=== PATIENT | female | born 1985 | race American Indian/Alaskan Native ===

== ENCOUNTER 2017-07-16 12:34 | Emergency (ER) | payer MEDICAID ==
[2017-07-16 13:23] VITALS: BP 142/91
[2017-07-16] MEDS ORDERED: NACL 0.9% 1000 ML 1,000 ML IV ONE (15:46)
--- NOTE | 2017-07-16 15:46 | Emergency Department Report ---
Blank Doc - Documentation Documentation: Patient is a 31-year-old Cecy female who is 14 weeks who has some dizziness when she stands for the past several days. Patient states that she has had significant morning sickness this . Patient also states that for the past 2 days she's had some right lower quadrant tenderness to feels like a pulling sensation. The patient patient denies any vaginal discharge vaginal bleeding or dysuria at this time. Patient reviewed with the treatment room to get IV fluids and have orthostatics do. Ne
[2017-07-16] MEDS ORDERED: TYLENOL PO ONE (16:30)
--- NOTE | 2017-07-16 16:35 | Emergency Department Report ---
ED HPI - General Chief complaint: Urogenital-Female Stated complaint: 4MTHS PREG W/DIZZINESS/ABD PAIN Time Seen by Provider: 07/16/17 15:34 Source: patient Mode of arrival: Ambulatory Limitations: No Limitations - History of Present Illness Initial comments: This is a 31-year-old female nontoxic, well nourished in appearance, no acute signs of distress presents to the ED with c/o of dizziness and right pelvic/groin pain x3 days. Patient states dizziness is aggravated with positions from sitting to standing. Patient stated that pelvic pain is described as pulling sensation. Patient stated she is currently 14 weeks . Patient denies any vaginal bleeding, vaginal discharge, urinary symptoms, fever, chills, nausea, vomiting, headache, stiff neck, back pain, chest pain, shortness of breath, difficulty breathing. Patient stated had similar symptoms 2 months ago on the left side and was seen in my smoking tobacco packer hand clinic with normal ultrasound. Patient stated last OB appointment was last week and normal. Patient denies any allergies or PMH. MD Complaint: abdominal pain (right pelvic), other (dizziness) -: days(s) (3) Location: pelvis (right) Radiation: none Severity: mild Severity scale (0 -10): 3 Quality: other (pulling sensation) Consistency: intermittent Improves with: none Worsens with: none Associated symptoms: denies other symptoms. denies: nausea/vomiting, vaginal bleeding, vaginal discharge, abdominal pain, dysuria, headache, vision changes, malaise, dysparuenia, rash, seizure, shortness of breath, syncope, weakness Vaginal bleeding: none :: Yes Number of weeks : 14 OB History - Current : no complications OB History - Previous Pregnancies: no complications Pre- care: followed by OB - Related Data : 2 Para: 1 Previous Rx's Medication Instructions Recorded Last Taken Type Acetaminophen 500 mg PO Q8H PRN #20 tablet 07/16/17 Unknown Rx Allergies Allergy/AdvReac Type Severity Reaction Status Date / Time No Known Allergies Allergy Unverified 07/16/17 13:23 ED Review of Systems ROS: Stated complaint: 4MTHS PREG W/DIZZINESS/ABD PAIN Other details as noted in HPI Constitutional: denies: chills, fever Eyes: denies: eye pain, eye discharge, vision change ENT: denies: ear pain, throat pain Respiratory: denies: cough, shortness of breath, wheezing Cardiovascular: denies: chest pain, palpitations Endocrine: no symptoms reported Gastrointestinal: denies: abdominal pain, nausea, diarrhea Genitourinary: denies: urgency, dysuria, discharge Musculoskeletal: denies: back pain, joint swelling, arthralgia Skin: denies: rash, lesions Neurological: other (dizzy). denies: headache, weakness, paresthesias Psychiatric: denies: anxiety, depression Hematological/Lymphatic: denies: easy bleeding, easy bruising ED Past Medical Hx - Past Medical History Previous Medical History?: No - Social History Smoking Status: Never Smoker Substance Use Type: None - Medications Home Medications: Home Medications Medication Instructions Recorded Confirmed Last Taken Type Acetaminophen 500 mg PO Q8H PRN #20 tablet 07/16/17 Unknown Rx ED Physical Exam - General Limitations: No Limitations General appearance: alert, in no apparent distress - Head Head exam: Present: atraumatic, normocephalic - Eye Eye exam: Present: normal appearance Pupils: Present: normal accommodation - ENT ENT exam: Present: normal exam, normal orophraynx, mucous membranes moist, TM's normal bilaterally, normal external ear exam - Neck Neck exam: Present: normal inspection, full ROM. Absent: tenderness, meningismus, lymphadenopathy, thyromegaly - Respiratory Respiratory exam: Present: normal lung sounds bilaterally. Absent: respiratory distress, wheezes, rales, rhonchi, stridor, chest wall tenderness, accessory muscle use, decreased breath sounds, prolonged expiratory - Cardiovascular Cardiovascular Exam: Present: regular rate, normal rhythm, normal heart sounds. Absent: irregular rhythm, systolic murmur, diastolic murmur, rubs, gallop - GI/Abdominal GI/Abdominal exam: Present: soft, normal bowel sounds. Absent: distended, tenderness, guarding, rebound, rigid, diminished bowel sounds - Rectal Rectal exam: Present: deferred - Extremities Exam Extremities exam: Present: normal inspection, full ROM, normal capillary refill. Absent: tenderness, pedal edema, joint swelling, calf tenderness - Back Exam Back exam: Present: normal inspection, full ROM - Neurological Exam Neurological exam: Present: alert, oriented X3, normal gait - Psychiatric Psychiatric exam: Present: normal affect, normal mood - Skin Skin exam: Present: warm, dry, intact, normal color. Absent: rash ED Course Vital Signs 07/16/17 13:19 Temperature 98.6 F Pulse Rate 104 H Respiratory 18 Rate Blood Pressure 142/91 O2 Sat by Pulse 100 Oximetry - Reevaluation(s) Reevaluation #1: 07/16/17 16:36 Patient is speaking in full sentences with no signs of distress noted. - Consultations Consultation #1: 07/16/17 16:36 Patient has been consulted with Dr. Barry about patient history, physical exam , and labs and examined and screened patient and agrees to ED plan of care and discharge plan of care. ED Medical Decision Making - Medical Decision Making This is a 31-year-old female that presents with pelvic pain and dizziness. Patient is stable and was examined by me and Dr. Barry. Orthostatic vital signs within normal limits. Patient received 1 L of normal saline and Tylenol. Patient stated that symptoms of pelvic pain has resolved and subsided. Dr. Barry stated no need for ultrasound to be obtained as patient had a normal ultrasound 2 months ago. Dizziness has subsided after 1L of Normal saline. Patient was referred to Follow-up with a MAINTENANCE TECHNICIAN [facility] in 3-5 days or if symptoms worsen and continue return to emergency room as soon as possible. At time of discharge, the patient does not seem toxic or ill in appearance. No acute signs of distress noted. Patient agrees to discharge treatment plan of care. No further questions noted by the patient. Critical care attestation.: If time is entered above; I have spent that time in minutes in the direct care of this critically ill patient, excluding procedure time. ED Disposition Clinical Impression: Pelvic pain, Dizziness Qualifiers: Weeks of gestation: 15 weeks Qualified Code(s): Z3A.15 - 15 weeks gestation of Disposition: DC-01 TO HOME OR SELFCARE Is pt being admited?: No Does the pt Need Aspirin: No Condition: Stable Instructions: (ED) Additional Instructions: Follow-up with a MAINTENANCE TECHNICIAN 2[facility] SH[facility] in 3-5 days or if symptoms worsen and continue return to emergency room as soon as possible. Prescriptions: Acetaminophen 500 mg PO Q8H PRN #20 tablet PRN Reason: Pain Referrals: [facility] [Other] - 3-5 Days KATINA CARLSON MD [Staff Physician] - 3-5 Days [facility] [Provider Group] - 3-5 Days [facility] [Outside] - 3-5 Days [facility] [Outside] - 3-5 Days Forms: Work/School Release Form(ED)
[2017-07-16 17:01] LABS: Bacteria,Urine 2+ /HPF (Negative); Bilirubin,Urine NEG (Negative); Blood,Urine NEG (Negative); Color,Urine Straw (Yellow); Protein,Urine <15 mg/dL mg/dL (Negative); Urobilinogen,Urine < 2.0 mg/dL (<2.0)
== END 2017-07-16 17:40 | disposition home or self-care (01) ==
LOC: ED 12:34
DX: O26.892 Other specified pregnancy related conditions, second trimester (principal); R10.2 Pelvic and perineal pain; R42 Dizziness and giddiness; Z3A.14 14 weeks gestation of pregnancy
CPT/HCPCS: 81001; 96360; 99283; J7030

== ENCOUNTER 2017-10-06 12:27 | Outpatient (CLI) | payer BC, MEDICAID ==
[2017-10-06] MEDS ORDERED: LACTATED RINGERS 500 ML IV ONE (12:30)
[2017-10-06 12:54] VITALS: BP 126/67
[2017-10-06 14:18] LABS: Basophils % (Auto) 0.1 % (0.0-1.8); Eosinophils % (Auto) 0.3 % (0.0-4.3); Hematocrit 32.5 % (30.3-42.9); Hemoglobin 11.2 gm/dl (10.1-14.3); Lymphocytes # (Auto) 1.5 K/mm3 (1.2-5.4); Mean Corpuscular HGB Conc 34 % (30-34); Mean Corpuscular Hemoglobin 30 pg (28-32); Mean Corpuscular Volume 87 fl (79-97); Monocytes # (Auto) 0.9 K/mm3 (0.0-0.8); Platelet Count 179 K/mm3 (140-440); Red Blood Count 3.74 M/mm3 (3.65-5.03); Red Cell Distribution Width 13.3 % (13.2-15.2)
[2017-10-06 14:34] LABS: Bacteria,Urine 4+ /HPF (Negative); Bilirubin,Urine NEG (Negative); Blood,Urine NEG (Negative); Color,Urine Yellow (Yellow); Protein,Urine <15 mg/dL mg/dL (Negative); Urobilinogen,Urine < 2.0 mg/dL (<2.0)
--- NOTE | 2017-10-06 15:40 | Ultrasound Report ---
FINAL REPORT PROCEDURE: US OB BPP WO NON-STRESS TECHNIQUE: Sonographic evaluation for breathing, movement, tone, and amniotic fluid volume was performed. CPT 90461 HISTORY: BPP, JACOBO, EFW COMPARISON: No prior studies are available for comparison. FINDINGS: Amniotic fluid volume: Normal-score 2. At least one vertical pocket > 2 cm or more in vertical axis. breathing: Normal-score 2. movement: Normal-score 2. tone: Normal-score 2.. Score: 8 of 8. heart rate measures 151 beats per minute. IMPRESSION: Normal biophysical profile score.
--- NOTE | 2017-10-06 15:46 | Ultrasound Report ---
FINAL REPORT PROCEDURE: US OB FOLLOW UP TECHNIQUE: Real-time limited sonographic examination was performed for evaluation of size, position, heartbeat, fluid volume for each fetus with image documentation (1 or more fetuses). CPT 75832 HISTORY: BPP, JACOBO, EFW COMPARISON: No prior studies are available for comparison. FINDINGS: Maternal cervix is not diagnostically visualized or evaluated. FETUS IUP: Single living intrauterine . Position: Cephalic. Placental position: Not evaluated Amniotic fluid volume: Amniotic fluid index measures 11.7 centimeters Heart rate and rhythm: 145 BPM, Regular . anatomic survey: Not performed. MEASUREMENTS BPD: 6.4 centimeters, 25 weeks 5 days. HC: 23.4 centimeters, 25 weeks 3 days. AC: 21.8 centimeters, 26 weeks 2 days. FL: 4.6 centimeters, 25 weeks 1 day. Mean Gestational Age (composite criteria): 25 weeks 5 days. Ratio biometry: Normal . Estimated Weight: 851 grams, 41 percentile by LMP. Estimated Due Date:01/14/2018. IMPRESSION: 1. Single living intrauterine gestation at approximately 25 weeks 5 days. 2. EDC by US 01/14/2018.
== END 2017-10-06 15:35 | disposition home or self-care (01) ==
LOC: TRG 12:27
PROVIDERS: ATTEND Obstetrics & Gynecology
DX: O47.02 False labor before 37 completed weeks of gestation, second trimester (principal); Z3A.25 25 weeks gestation of pregnancy
CPT/HCPCS: 36415; 59025; 76816; 76819; 81001; 85025; 96360; J7120

== ENCOUNTER 2017-12-05 12:16 | Outpatient (CLI) | payer BC, MEDICAID ==
[2017-12-05 12:57] LABS: Bacteria,Urine 3+ /HPF (Negative); Bilirubin,Urine NEG (Negative); Blood,Urine NEG (Negative); Color,Urine Yellow (Yellow); Protein,Urine <15 mg/dL mg/dL (Negative); RBC,Urine < 1.0 /HPF (0.0-6.0); Urobilinogen,Urine < 2.0 mg/dL (<2.0)
[2017-12-05] MEDS ORDERED: TYLENOL PO ONE (13:49)
[2017-12-05 14:19] LABS: Basophils % (Auto) 0.3 % (0.0-1.8); Eosinophils # (Auto) 0.1 K/mm3 (0.0-0.4); Eosinophils % (Auto) 0.7 % (0.0-4.3); Hematocrit 31.9 % (30.3-42.9); Hemoglobin 10.6 gm/dl (10.1-14.3); Lymphocytes # (Auto) 1.5 K/mm3 (1.2-5.4); Lymphocytes % (Auto) 19.6 % (13.4-35.0); Mean Corpuscular HGB Conc 33 % (30-34); Mean Corpuscular Hemoglobin 28 pg (28-32); Mean Corpuscular Volume 84 fl (79-97); Monocytes # (Auto) 0.6 K/mm3 (0.0-0.8); Monocytes % (Auto) 8.2 % (0.0-7.3); Platelet Count 171 K/mm3 (140-440); Red Cell Distribution Width 14.8 % (13.2-15.2)
[2017-12-05] MEDS ORDERED: LACTATED RINGERS 500 ML IV ONE (14:22)
[2017-12-05 14:53] VITALS: BP 131/76
[2017-12-05 15:20] LABS: Albumin 3.3 g/dL (3.9-5); BUN/Creatinine Ratio 5; Blood Urea Nitrogen 2 mg/dL (7-17); Calcium 9.5 mg/dL (8.4-10.2); Hemolysis Index 205
[2017-12-05 15:24] LABS: Alanine Aminotransferase 11 units/L (7-56)
--- NOTE | 2017-12-05 16:49 | Ultrasound Report ---
COMPLETE OB ULTRASOUND: Maternal swelling. Gestation: Weber Position: Cephalic JACOBO = 21.2 cm Placenta: Left lateral Placental Grade: 2 Heart Rate: 138 BPM BPD: 8.7 cm = 35 w 1 d HC: 31.4 cm = 35 w 2 d AC: 32.4 cm = 36 w 2 d FL: 6.9 cm = 31 w 1 d HC/AC Ratio: 0.97 Cephalic Index: 85.9 Estimated Weight: 2772 grams Clinical age = 34 w 2 d EDC: 01/14/18 US Gest. Age = 35 w 3 d EDC: 01/06/18 Comment: 4.7 cm anterior uterine fibroid. BIOPHYSICAL PROFILE: 2 - breathing movements 2 - movements 2 - posture and tone 2 - Qualitative amniotic fluid volume 8 - TOTAL SCORE OF POSSIBLE 8 Heart Rate (bpm) 138
== END 2017-12-05 15:16 | disposition home or self-care (01) ==
LOC: TRG 12:16
PROVIDERS: ATTEND Obstetrics & Gynecology
DX: O47.03 False labor before 37 completed weeks of gestation, third trimester (principal); Z3A.34 34 weeks gestation of pregnancy
CPT/HCPCS: 36415; 59025; 76816; 76819; 80053; 81001; 85025; 86850; 86900; 86901; 96360; 96361; J7120

== ENCOUNTER 2018-01-07 05:49 | Inpatient (IN) | payer BC, MEDICAID ==
[~2018-01-07 05:49] MED LIST: BICITRA PO NR; PEPCID IV NR; REGLAN IV NR
[2018-01-07] MEDS ORDERED: PITOCin/NS 20 UNIT/1000ML DRIP 20 UNITS/1,000 ML BAG IV SCH ×2 (06:00→11:29)
[2018-01-07] MEDS ORDERED: ANCEF/STERILE WATER 2 GM/20 ML 2 GM/20 ML SYRINGE IV NR (06:00)
[2018-01-07 06:32] LABS: Basophils % (Auto) 0.4 % (0.0-1.8); Eosinophils % (Auto) 0.5 % (0.0-4.3); Hematocrit 32.3 % (30.3-42.9); Hemoglobin 10.5 gm/dl (10.1-14.3); Lymphocytes # (Auto) 2.3 K/mm3 (1.2-5.4); Lymphocytes % (Auto) 27.2 % (13.4-35.0); Mean Corpuscular HGB Conc 32 % (30-34); Mean Corpuscular Hemoglobin 26 pg (28-32); Mean Corpuscular Volume 81 fl (79-97); Monocytes # (Auto) 0.8 K/mm3 (0.0-0.8); Monocytes % (Auto) 9.7 % (0.0-7.3); Platelet Count 152 K/mm3 (140-440); Red Blood Count 3.97 M/mm3 (3.65-5.03); Red Cell Distribution Width 15.5 % (13.2-15.2)
[2018-01-07] MEDS: LACTATED RINGERS 1,000 ML IV SCH ×2 (06:45→11:17)
--- NOTE | 2018-01-07 07:15 | Anesthesia Consultation ---
Anesthesia Consult and Med Hx Date of service: 01/07/18 - Airway Anesthetic Teeth Evaluation: Good ROM Head & Neck: Adequate Mental/Hyoid Distance: Adequate Mallampati Class: Class II Intubation Access Assessment: Probably Good - Pre-Operative Health Status ASA Pre-Surgery Classification: ASA2 Proposed Anesthetic Plan: Epidural, Spinal - Pulmonary Hx Asthma: Yes (mild, albuterol PRN) Hx Respiratory Symptoms: Yes (has resolving cold - scratchy throat, dry cough) COPD: No Hx Pneumonia: No - Cardiovascular System Hx Hypertension: No - Central Nervous System Hx Seizures: No Hx Psychiatric Problems: No - Endocrine Hx Renal Disease: No Hx End Stage Renal Disease: No Hx Hypothyroidism: No Hx Hyperthyroidism: No - Hematic Hx Anemia: No Hx Sickle Cell Disease: No - Other Systems Hx Alcohol Use: No
--- NOTE | 2018-01-07 07:16 | Anesthesia Day of Surgery ---
Anesthesia Day of Surgery - Day of Surgery Patient Examined: Yes Patient H&P Reviewed: Yes Patient is NPO: Yes
[2018-01-07] MEDS ORDERED: ZOFRAN IV PRN ×2 (07:30→11:29)
[2018-01-07] MEDS ORDERED: DILAUDID IV PRN (07:30)
[2018-01-07] MEDS ORDERED: PHENERGAN PR PRN (07:30)
[2018-01-07] MEDS ORDERED: BENADRYL IV PRN (07:30)
[2018-01-07] MEDS ORDERED: PHENERGAN PO PRN (07:30)
[2018-01-07] MEDS ORDERED: NARCAN 0.4 MG/1 ML IV PRN ×2 (07:30→11:29)
--- NOTE | 2018-01-07 07:37 | History and Physical Report ---
History of Present Illness Date of examination: 01/07/18 Date of admission: 01/07/18 05:49 History of present illness: Patient admitted for repeat section. Patient informed the risks of the surgery include bleeding possibly bleeding heavy enough to require blood transfusion, infection possible damage to bowel bladder ureter. Patient understands that due to her previous surgery she is an increased risks of adjacent organ damage. Patient's questions answered. Patient understands and desires to proceed. Menstrual History Regularity: regular Menses every: 24 days Duration: 7 LMP reliability: definite LMP character: heavier test type: urine test Date: 05/24/2017 BC at conception: none Planned ? no EDC Calculations LMP: 01/14/2018 EDC Confirmation: 01/14/2018 Past History : 5 Term Births: 1 Premature Births: 0 Living Children: 1 Para: 1 Mult. Births: 0 Prev : 1 Prev. attempt? 0 Aborta: 2 Elect. Ab: 1 Spont. Ab: 1 Ectopics: 1 # 1 Delivery date: 2004 Delivery type: ectopic Comments: tx'd w/ MTX, left side # 2 Delivery date: 04/15/2009 Weeks Gestation: FT labor: no Delivery type: Delivery location: [facility] Sex: Male weight: 7-9 Comments: breech # 3 Delivery date: 2009 Weeks Gestation: 4-5 Delivery type: EAB Comments: denies complications # 4 Delivery date: 2013 Delivery type: SAB Comments: MAB - no complications Past Medical History: Negative Past Medical History Past Surgical History: Past Medical History Social Hx: Patient is Smoking History: Patient has never smoked. Infection History Hx of STD: HSV HIV Risk Eval: low risk Hepatitis B Risk Eval: low risk Personal hx. of genital herpes: yes Partner hx. of genital herpes: no Rash, Viral, or Febrile illness since last LMP? no Varicella/Chicken Pox Status: Unknown TB Risk: no Genetic History Congenital Heart Defect: Mom: no Dad: no Sona Disease: Mom: no Dad: no Thalassemia Mom: no Dad: no Neural Tube Defect Mom: no Dad: no Down's Syndrome Mom: no Dad: no Cole-Sachs Mom: no Dad: no Sickle Cell Disease/Trait Mom: no Dad: no Hemophilia Mom: no Dad: no Muscular Dystrophy Mom: no Dad: no Cystic Fibrosis Mom: no Dad: no [place] Chorea Mom: no Dad: no Mental Retardation Mom: no Dad: no Fragile X Mom: no Dad: no Other Genetic/Chromosomal Disorder Mom: no Dad: no Child w/other defect Mom: no Dad: no Enviromental Exposures Xray Exposure: no Medication, drug, or alcohol use since LMP: no Chemical/Other Exposure: no Exposure to Cat Liter: no Hx of Parvovirus (Fifth Disease): no Occupational Exposure to Children: none Current Allergies (reviewed today): No known allergies Past History Past Medical History: asthma, other (See HPI) Past Surgical History: section, other (See HPI) DUPLICATING MACHINE OPERATOR History: other (See HPI) Family/Genetic History: other (See HPI) Social history: other (See HPI) - Obstetrical History Expected Date of Delivery: 01/14/18 Actual Gestation: 39 Week(s) 0 Day(s) : 5 Para: 1 Hx # Term Pregnancies: 1 Number of Pregnancies: 0 Spontaneous Abortions: 2 (1 Ectopic) Induced : 1 Number of Living Children: 1 Medications and Allergies Allergies Allergy/AdvReac Type Severity Reaction Status Date / Time No Known Allergies Allergy Verified 12/05/17 12:30 Home Medications Medication Instructions Recorded Confirmed Last Taken Type Acetaminophen 500 mg PO Q8H PRN 10/06/17 10/06/17 10/06/17 09:30 History Pnv No.95/Ferrous Fum/Folic AC 1 tab PO QDAY 10/06/17 10/06/17 10/05/17 20:00 History [ Formula Tablet] Ferrous Sulfate [Feosol 325 MG tab] 325 mg PO BID #60 tablet 01/07/18 Unknown Rx Ibuprofen [Motrin 800 MG tab] 800 mg PO Q6H PRN #30 tablet 01/07/18 Unknown Rx oxyCODONE /ACETAMINOPHEN [Percocet 1 - 2 tab PO Q4H PRN #30 tablet 01/07/18 Unknown Rx 5/325 mg] Active Meds: Active Medications Citric Acid/Sodium Citrate (Bicitra) 30 ml PO ONCE NR Stop: 01/07/18 23:45 Diphenhydramine HCl (Benadryl) 12.5 mg IV Q2H PRN PRN Reason: Itching Famotidine (Pepcid) 20 mg IV ONCE NR Stop: 01/07/18 23:45 Hydromorphone HCl (Dilaudid) 0.5 mg IV Q5M PRN PRN Reason: Breakthrough Pain Stop: 01/07/18 15:00 Cefazolin Sodium (Ancef/Sterile Water 2 Gm/20 Ml) 2 gm in 20 mls @ 80 mls/hr IV PREOP NR; Protocol Stop: 01/07/18 23:45 Lactated Ringer's (Lactated Ringers) 1,000 mls @ 2,250 mls/hr IV PREOP MCKAY Stop: 01/08/18 06:27 Last Admin: 01/07/18 06:45 Dose: 2,250 mls/hr Oxytocin/Sodium Chloride (Pitocin/Ns 20 Unit/1000ml Drip) 20 units in 1,000 mls @ 0 mls/hr IV TITR MCKAY Metoclopramide HCl (Reglan) 10 mg IV ONCE NR Stop: 01/07/18 23:45 Naloxone HCl (Narcan 0.4 Mg/1 Ml) 0.2 mg IV Q2MIN PRN PRN Reason: Res Rate </= 8 or 02 SAT < 92% Ondansetron HCl (Zofran) 4 mg IV Q8H PRN PRN Reason: Nausea And Vomiting Promethazine HCl (Phenergan) 25 mg PO Q6H PRN PRN Reason: Nausea And Vomiting Promethazine HCl (Phenergan) 25 mg [place] Q6H PRN PRN Reason: Nausea And Vomiting Sodium Chloride (Sodium Chloride Flush Syringe 10 Ml) 10 ml IV PRN PRN PRN Reason: flush - Physical Exam Breasts: Positive: deferred Cardiovascular: Regular rate Lungs: Positive: Normal air movement Abdomen: Positive: normal appearance, soft Genitourinary (Female): Positive: normal external genitalia Uterus: Positive: enlarged Results Result Diagrams: 01/07/18 06:14 Abnormal lab results 01/07/18 Range/Units 06:14 MCH 26 L (28-32) pg RDW 15.5 H (13.2-15.2) % [place] % (Auto) 9.7 H (0.0-7.3) % All other labs normal. Assessment and Plan - Patient Problems (1) with 39 completed weeks gestation Current Visit: Yes Status: Acute (2) BMI 37.0-37.9, adult Current Visit: No Status: Acute (3) Herpes genitalia Current Visit: No Status: Chronic (4) Previous section Current Visit: No Status: Acute Plan to address problem: Patient informed the risks of the surgery include bleeding possibly bleeding heavy enough to require blood transfusion, infection possible damage to bowel bladder ureter. All questions answered. Patient agrees to proceed (5) Encounter for sterilization Current Visit: Yes Status: Acute Plan to address problem: Patient desires permanent sterilization. She declined temporary contraceptives. She understands the risks of the surgery include bleeding infection possible damage to bowel bladder or ureters. She understands that this surgery would make her permanently sterile. She also understands the approximate 1% failure rate. The patient understands all the above and desires to proceed.
[2018-01-07] MEDS ORDERED: SODIUM CHLORIDE FLUSH SYRINGE 10 ML IV PRN (08:00)
[2018-01-07] MEDS ORDERED: ANCEF/STERILE WATER 2 GM/20 ML IV ONE (08:07)
[2018-01-07] MEDS ORDERED: NACL 0.9% IR ONE (08:13)
[2018-01-07] MEDS ORDERED: WATER FOR IRRIG STERILE IR ONE (08:13)
[2018-01-07] MEDS ORDERED: NEO SYNEPHRINE/NS Syringe(OR USE) IV ONE (08:33)
[2018-01-07] MEDS ORDERED: LACTATED RINGERS 1,000 ML ONE (08:33)
[2018-01-07] MEDS ORDERED: ASTRAMORPH PF 10MG/10ML ONE (08:34)
[2018-01-07] MEDS ORDERED: ZOFRAN ONE (08:41)
--- NOTE | 2018-01-07 09:00 | Operative Report ---
Operative Report Operative Report: Date of procedure: 01/07/2018 Pre-operative diagnosis: Intrauterine at 39 weeks with previous section and desires permanent sterilization Post-operative diagnosis: Same plus leiomyomata Procedure name(s): Repeat low transverse section with bilateral tubal ligation modified Driss type Surgeon: Sukumar Garcia MD [employer] Teacher: Katrina Ag, certified nurse coin machine servicer repairer Anesthesia: Spinal EBL: 800 mL Complications: None Findings: Patient with the uterus with a fundal myoma approximately 4 cm in diameter normal tubes and ovaries bilaterally. Female weight 7 lbs. 13 oz. Apgars 8 at 1 minute and 9 at 5 minutes Specimen(s): Portion of right and left fallopian tubes Procedure: The patient was brought to the operating room. A spinal was placed without any complications. She was then placed in left lateral tilt. Prepped and draped in the usual sterile manner. After testing for adequate anesthesia level, a Pfannenstiel incision was made through her previous scar. This incision was taken down to the fascia. The fascia was then nicked in the midline. This incision was extended out laterally with Arriaga scissors. The fascia was then sharply and bluntly from the underlying rectus muscles. The rectus muscles were bluntly and sharply . The peritoneum was then entered with the doubling machine operator's fingers. This incision was spread vertically with care not to damage the bladder below. The bladder flap was then formed sharply and bluntly with Metzenbaum scissors. Bladder blade was placed. A transverse incision was made in lower uterine segment. This incision was extended laterally with the operators fingers. The amniotic sac was then entered bluntly with the doubling machine operator's fingers. The infant was delivered from the vertex position. Bulb suction on the mother's abdomen. Cord was double clamped and cut. The was then passed to the nursery personnel who were in attendance. The above scores were given by the nursery personnel. The placenta was then bluntly removed. The uterus was then externalized and wiped clean the remaining products. The uterine incision was closed in layers. The first incision was closed in a locking manner using 0 Vicryl. This was followed by imbricating stitch also with 0 Vicryl. Attention was then switched to the patient's fallopian tubes. Each fallopian tube was identified by its fimbriated end. A portion of each tube was grabbed with the Annalee clamp approximately 2-3 cm from the cornua. Each loop was double ligated with 0 plain suture. The loop were cut with Metzenbaum scissors. Each stump was found to be hemostatic and cauterized with the Bovie. Attention was then switched back to the uterine closure. This closure was hemostatic. The bladder flap was copiously irrigated and found to be hemostatic. The pelvis was copiously irrigated and found to be hemostatic. The uterus was then placed back to the patient's abdomen. The retractors were removed. The rectus muscles were inspected and found to be hemostatic. The fascia was then closed in a running manner using 0 Vicryl. This incision was hemostatic irrigation Bovie. The skin was reapproximated with 4-0 Vicryl subcuticularly. The patient tolerated procedure well. Her urine was clear. The infant was admitted to the well baby nursery. The patient was accompanied to recovery room in good condition. Instrument count correct X 3.
[2018-01-07] MEDS ORDERED: TYLENOL PO PRN (11:29)
[2018-01-07] MEDS ORDERED: TUCKS PAD TP PRN (11:29)
[2018-01-07] MEDS ORDERED: SODIUM CHLORIDE FLUSH SYRINGE 10 ML IV SCH (11:29)
[2018-01-07] MEDS ORDERED: ANUCORT-HC PR PRN (11:29)
[2018-01-07] MEDS ORDERED: LANSINOH TP PRN (11:29)
[2018-01-07] MEDS ORDERED: MILK OF MAGNESIA PO PRN (11:29)
[2018-01-07] MEDS ORDERED: MYLICON PO PRN (11:29)
[2018-01-07] MEDS: TORADOL IV SCH ×2 (12:02→19:53)
[2018-01-07] MEDS ORDERED: D5LR 1,000 ML IV SCH (12:29)
[2018-01-07] MEDS: ANCEF/NS 1 GM/50 ML 1 GM/50 ML BAG IV SCH (16:04)
[2018-01-07 20:46] LABS: Hematocrit 26.3 % (30.3-42.9)
[2018-01-07] MEDS ORDERED: BENADRYL IV ONE (20:53)
[2018-01-08] MEDS: ANCEF/NS 1 GM/50 ML 1 GM/50 ML BAG IV SCH (00:22)
[2018-01-08] MEDS: TORADOL IV SCH (02:50)
--- NOTE | 2018-01-08 07:11 | Progress Note ---
Assessment and Plan - Patient Problems (1) delivery delivered Onset Date: ~01/07/18 Current Visit: Yes Status: Acute Plan to address problem: Pt resting in bed. Baby has just fed. VSS FF below umb Lochia small Dressing D& I H&H9/26 blood loss r/t surgery Doing well s/p repeat c/s P: Continue pathway Advance diet and activity Encouraged ambulation Subjective - Subjective Date of service: 01/08/18 (no c/o voiced) Principal diagnosis: Day # 1 s/p repeat c/s with tubal Patient reports: voiding normally, pain well controlled, ambulating normally [place]: doing well Objective - Vital Signs Latest vital signs: Vital Signs Temp Pulse Resp BP BP Pulse Ox 01/08/18 00:30 98.7 F 74 18 120/78 01/07/18 19:30 98.7 F 86 18 138/75 01/07/18 16:20 98.3 F 87 20 139/86 01/07/18 13:10 98 F 104 H 20 123/59 01/07/18 11:00 98.8 F 77 18 131/75 01/07/18 10:06 85 16 134/79 99 01/07/18 09:55 82 22 135/79 99 01/07/18 09:40 92 H 9 L 133/86 100 01/07/18 09:25 90 15 132/75 98 01/07/18 09:20 92 H 17 118/76 98 01/07/18 09:15 89 20 124/74 100 01/07/18 09:11 98.4 F 99 H 16 120/71 100 Intake and Output 01/07/18 01/08/18 01/08/18 22:59 06:59 14:59 Intake Total 410 200 Output Total 300 800 Balance 110 -600 Intake: IV 50 ANCEF/NS 1 GM/50 ML 1 gm 50 In 50 ml @ 100 mls/hr IV Q8H [facility] Rx#:[id number] Oral 360 200 Output: Urine 300 800 Indwelling Catheter 300 Void 800 Other: Total, Intake Amount 240 200 Total, Output Amount 300 800 # Voids Void 1 - Exam Breasts: Present: normal Cardiovascular: Present: Regular rate Lungs: Present: Normal air movement Abdomen: Present: normal appearance, soft, normal bowel sounds Uterus: Present: normal, firm, fundal height at umbilicus Extremities: Present: normal Deep Tendon Reflex Grade: Normal +2 Incision: Present: normal, dry, intact, dressed (to be rremoved this AM) - Labs Labs: Abnormal lab results 01/07/18 Range/Units 20:34 Hgb 9.0 L (10.1-14.3) gm/dl Hct 26.3 L D (30.3-42.9) %
[2018-01-08] MEDS: MOTRIN PO PRN (09:34)
[2018-01-08] MEDS: FEOSOL PO SCH (09:34)
[2018-01-08] MEDS ORDERED: CLARITIN PO ONE (10:00)
--- NOTE | 2018-01-08 10:06 | Query-Anemia ---
Ivon Garcia Date:___01/08/18 Dyslexia Teacher/CDS:___courtney Phone#:___[phone] Exercise your independent professional judgment when responding to this query. Questions asked do not imply a particular answer is desired or expected. We greatly appreciate your clarification on this issue. Clinical Documentation States: Patient admitted for repeat section. Operative Report: Date of procedure: 01/07/2018 Pre-operative diagnosis: Intrauterine at 39 weeks with previous section and desires permanent sterilization Post-operative diagnosis: Same plus leiomyomata Procedure name(s): Repeat low transverse section with bilateral tubal ligation modified Mabel type Surgeon: Sukumar Garcia MD Senior Painter: Katrina Ag, certified nurse windows software engineer Anesthesia: Spinal EBL: 800 mL Clinical Findings Show: Date(Time) 01/07/18 (06:14) 01/07/18 (20:34) Hb 10.5 9.0 Hct 32.3 26.3 Etiology: [ x] Anemia due to acute blood loss [ ] Anemia due to chronic blood loss [ ] Anemia secondary to ESRD [ ] Anemia secondary to neoplastic disease [ ] Iron deficiency anemia due to malabsorption [ ] GI Bleed from: [ ] Anemia of chronic disease ,Other: [ ] Precipitous Drop in Hemoglobin [ ] Precipitous Drop in Hematocrit [ ] Other: [ ] Unable to determine [ ] Comment/Explanation: Present on Admission: [ ] Yes (Y) [ ] Clinically undeterminable (W) [ x ] No (N) Please also document response in your Progress Notes and/or Discharge Summary and indicate if the condition was present on admission. GURVINDERD
[2018-01-08] MEDS ORDERED: NUBAIN IV ONE (16:10)
[2018-01-08] MEDS ORDERED: BENADRYL PO PRN (16:11)
[2018-01-08] MEDS: NORCO 5/325 PO PRN (23:32)
[2018-01-09] MEDS: MOTRIN PO PRN ×2 (04:52→15:58)
[2018-01-09] MEDS ORDERED: BOOSTRIX IM ONE (06:00)
--- NOTE | 2018-01-09 08:44 | Discharge Summary ---
Providers - Providers Date of Admission: 01/07/18 05:49 Date of discharge: 01/09/18 Attending physician: MILAGROS JASSO 01/07/18 11:29 Consult to Psychiatric Lpn [CONS] Routine Reason For Exam: Primary care physician: MILAGROS JASSO Hospitalization Reason for admission: repeat c/s Condition: Good Pertinent studies: postop H&H 01/09.3 Procedures: repeat c/s Hospital course: uncomplicated c/s delivery and course Disposition: - TO HOME OR SELFCARE - Discharge Diagnoses (1) delivery delivered Status: Acute (2) Anemia associated with acute blood loss Status: Acute Core Measure Documentation - Palliative Care Palliative Care/ Comfort Measures: Not Applicable - Core Measures Any of the following diagnoses?: none Exam - Constitutional Vitals: Temp Pulse Resp BP Pulse Ox 98.9 F 98 H 20 127/85 98 01/09/18 00:09 01/09/18 00:09 01/09/18 04:52 01/09/18 00:01/09/18 00:09 General appearance: Present: no acute distress, well-nourished - EENT Eyes: Present: PERRL ENT: hearing intact, clear oral mucosa - Neck Neck: Present: supple, normal ROM - Respiratory Respiratory effort: normal Respiratory: bilateral: CTA - Cardiovascular Heart Sounds: Present: S1 & S2. Absent: rub, click - Extremities Extremities: pulses symmetrical, No edema Peripheral Pulses: within normal limits - Abdominal General gastrointestinal: Present: soft, non-tender, non-distended, normal bowel sounds Female genitourinary: Present: normal - Integumentary Integumentary: Present: clear, warm, dry - Musculoskeletal Musculoskeletal: gait normal, strength equal bilaterally - Psychiatric Psychiatric: appropriate mood/affect, intact judgment & insight - Neurologic Neurologic: CNII-XII intact, moves all extremities - Additional findings Additional findings: incision D&I, lochia scant, fundus firm, both breast and bottle feeding. Anemia - asymptomatic. Plan Activity: no restrictions Diet: regular Wound: open to air, keep clean and dry, other (SHOWER DAILY AND DRY THOROUGHLY) Follow up with: MILAGROS JASSO MD [Primary Care Provider] - 7 Days (Congratulations! Please keep your scheduled appointment next week for your incision check and call [phone] for any questions or concerns. ) Prescriptions: Ferrous Sulfate [Feosol 325 MG tab] 325 mg PO BID #60 tablet Ibuprofen [Motrin 800 MG tab] 800 mg PO Q6H PRN #30 tablet PRN Reason: Pain oxyCODONE /ACETAMINOPHEN [Percocet 5/325 mg] 1 - 2 tab PO Q4H PRN #30 tablet PRN Reason: Pain, Moderate
[2018-01-09] MEDS: FEOSOL PO SCH (11:05)
[2018-01-09] MEDS: NORCO 5/325 PO PRN (15:57)
[2018-01-09 20:13] VITALS: BP 135/74
== END 2018-01-09 19:00 | disposition home or self-care (01) | DRG 765 ==
LOC: APU 05:49 → OB 11:51
PROVIDERS: ADMIT Obstetrics & Gynecology; ATTEND Obstetrics & Gynecology
PROC: 10D00Z1 Extraction of Products of Conception, Low, Open Approach (ICD-10-PCS; principal; 2018-01-07)
PROC: 0UB70ZZ Excision of Bilateral Fallopian Tubes, Open Approach (ICD-10-PCS; 2018-01-07)
PROC: 3E0234Z Introduction of Serum, Toxoid and Vaccine into Muscle, Percutaneous Approach (ICD-10-PCS; 2018-01-07)
DX: O34.211 Maternal care for low transverse scar from previous cesarean delivery (principal); D62 Acute posthemorrhagic anemia; O98.32 Other infections with a predominantly sexual mode of transmission complicating childbirth; Z3A.39 39 weeks gestation of pregnancy; Z37.0 Single live birth; Z23 Encounter for immunization; O90.81 Anemia of the puerperium; J45.909 Unspecified asthma, uncomplicated; O99.52 Diseases of the respiratory system complicating childbirth; Z30.2 Encounter for sterilization; O34.13 Maternal care for benign tumor of corpus uteri, third trimester; D25.9 Leiomyoma of uterus, unspecified
CPT/HCPCS: 36415; 85014; 85018; 85025; 86850; 86900; 86901; 88302; 90471; 90715; 99211; C1765; G0463; J0690; J1200; J1885; J2274; J2300; J2370; J2405; J2590; J2765; J7120

== ENCOUNTER 2018-05-09 06:28 | Day surgery (SDC) | payer BC, MEDICAID ==
[~2018-05-09 06:28] MED LIST changes: +ANCEF/STERILE WATER 2 GM/20 ML IV NR; -BICITRA PO NR; +NEURONTIN PO NR; -PEPCID IV NR; -REGLAN IV NR; +VERSED IV NR
--- NOTE | 2018-05-09 06:56 | Anesthesia Consultation ---
Anesthesia Consult and Med Hx Date of service: 05/09/18 - Airway Anesthetic Teeth Evaluation: Good, Partials Mental/Hyoid Distance: Adequate Mallampati Class: Class II Intubation Access Assessment: Probably Good - Pulmonary Exam CTA: Yes - Cardiac Exam Cardiac Exam: RRR - Pre-Operative Health Status ASA Pre-Surgery Classification: ASA2 Proposed Anesthetic Plan: General - Pulmonary Hx Smoking: No Hx Asthma: Yes ( CHILD ONLY) Hx Respiratory Symptoms: Yes (has resolving cold - scratchy throat, dry cough) COPD: No Hx Pneumonia: No Hx Sleep Apnea: No (BARBARA PRE SCREEN NEGATIVE) - Cardiovascular System Hx Hypertension: No - Central Nervous System Hx Seizures: No Hx Psychiatric Problems: No - Endocrine Hx Renal Disease: No Hx End Stage Renal Disease: No Hx Hypothyroidism: No Hx Hyperthyroidism: No - Hematic Hx Anemia: Yes (WITH PREG ONLY ( 12/2017)) Hx Sickle Cell Disease: No - Other Systems Hx Alcohol Use: No Hx Cancer: No
[2018-05-09] MEDS ORDERED: SUBLIMAZE IV PRN (06:57)
[2018-05-09] MEDS ORDERED: PERCOCET 5/325 PO PRN (06:57)
[2018-05-09] MEDS ORDERED: ZOFRAN IV PRN (06:57)
--- NOTE | 2018-05-09 06:57 | Anesthesia Day of Surgery ---
Anesthesia Day of Surgery - Day of Surgery Patient Examined: Yes Patient H&P Reviewed: Yes Patient is NPO: Yes
[2018-05-09] MEDS ORDERED: NACL BACTERIOSTATIC INFILTRATI ONE (07:05)
[2018-05-09] MEDS: LACTATED RINGERS 1,000 ML IV SCH ×2 (07:20→10:47)
[2018-05-09] MEDS ORDERED: ZOFRAN ONE (07:21)
[2018-05-09] MEDS ORDERED: SUBLIMAZE ONE ×2 (07:21→08:28)
[2018-05-09] MEDS ORDERED: VERSED ONE (07:21)
[2018-05-09] MEDS ORDERED: ZEMURON IV ONE (07:21)
[2018-05-09] MEDS ORDERED: DECADRON ONE (07:21)
[2018-05-09] MEDS ORDERED: DIPRIVAN 10 MG/ML IV ONE (07:22)
[2018-05-09 07:49] LABS: Basophils % (Auto) 0.6 % (0.0-1.8); Eosinophils # (Auto) 0.1 K/mm3 (0.0-0.4); Hematocrit 37.2 % (30.3-42.9); Hemoglobin 12.3 gm/dl (10.1-14.3); Lymphocytes # (Auto) 2.1 K/mm3 (1.2-5.4); Mean Corpuscular HGB Conc 33 % (30-34); Mean Corpuscular Volume 84 fl (79-97); Monocytes # (Auto) 0.4 K/mm3 (0.0-0.8); Monocytes % (Auto) 6.5 % (0.0-7.3); Platelet Count 196 K/mm3 (140-440); Red Blood Count 4.42 M/mm3 (3.65-5.03); Red Cell Distribution Width 13.6 % (13.2-15.2)
[2018-05-09] MEDS ORDERED: XYLOCAINE CARDIAC IV ONE (07:49)
[2018-05-09] MEDS ORDERED: MARCAINE-EPI 0.5%-1:200,000 INFILTRATI ONE ×2 (07:50→08:00)
[2018-05-09] MEDS ORDERED: ceFAZolin 2 GM in NACL 0.9% 100 ML IV ONE (08:00)
[2018-05-09] MEDS ORDERED: NACL 0.9% IR ONE (08:00)
[2018-05-09] MEDS ORDERED: BLOXIVERZ ONE (08:37)
[2018-05-09] MEDS ORDERED: ROBINUL ONE (08:37)
--- NOTE | 2018-05-09 08:50 | Discharge Summary ---
Short Stay Discharge Plan Activity: other (observe x 4 hrs then august d/c if stable. sips of non carbonated cl liqs today. advance to solid diet at home in am as [place]) Diet: other Wound: keep clean and dry (x 5 days. abd binder x 3 wks. no lifting over 5 lbs x 3 wks) Special Instructions: no heavy lifting Additional Instructions: surfak I po q am x 3 days. aleve I po q 6-8 hrs prn for breakthrough pain Follow up with: KEYANNA FUCHS MD [Staff Physician] - 7 Days
[2018-05-09] MEDS: DILAUDID IV PRN ×2 (09:10→09:25)
--- NOTE | 2018-05-09 09:18 | Operative Report ---
PREOPERATIVE DIAGNOSIS: Ventral hernia. POSTOPERATIVE DIAGNOSES: 1. Ventral hernia. 2. 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 PROCEDURE: 1. Diagnostic laparoscopy. 2. Laparoscopic lysis of intraabdominal adhesions. 3. Ventral hernia repair with mesh. SURGEON: Yohan Richardson MD ASSISTANT [employer]O CENTER MANAGER: Dr. Simons. ANESTHESIA: General. ESTIMATED BLOOD LOSS: Minimal. DRAINS: No drains. COMPLICATIONS: None. PROCEDURE IN DETAIL: The patient was taken up to the operating room, prepped and draped in usual sterile fashion. A Veress needle was inserted and CO2 insufflation begun. A 5 mm trocar was inserted and camera inserted. Inspection of the abdomen did indeed confirm ventral hernia. Also, some omental adhesions were noted both above and below the hernia site. The patient had had a previous x 2. Harmonic scalpel was used to slowly dissect all the omental adhesions until the entire undersurface surrounding the ventral hernia were cleared. The omentum was then carefully inspected and noted to be dry with no evidence of oozing or bleeding. A 10 mm trocar was then inserted over the ventral hernia defect. A Ventralex circular medium mesh was then placed through the trocar in pullback snug to the peritoneal cavity. Tackers were used to tack the mesh in its entire circumference. Pictures of adhesiolysis as well as the mesh repair were taken. Some incarcerated preperitoneal fat was noted in the subcutaneous above the hernia defect. This was removed and sent as specimen. The entire was irrigated copiously and dried. Checked for hemostasis and noted to be dry. A 0 Vicryl was then also used to tack the mesh to the fascial defect anteriorly. The 5 mm trocars were removed under direct visualization. No bleeding or oozing noted. The final 5 mm port was used to expel the CO2 and the trocar removed. The skin at all port sites were closed with subcuticular 4-0 Vicryl. A 0.5% Marcaine with epinephrine was infiltrated over all sites for postop pain relief. Steri-Strips, 2 x 2s, and Tegaderm were applied. Abdominal binder will also be placed. The patient tolerated the procedure well and left OR in stable condition. JOB# [id number] FP/NTS
--- NOTE | 2018-05-09 14:40 | Post Anesthesia Evaluation ---
- Post Anesthesia Evaluation Patient Participated: Yes Airway Patent: Yes Stable Respiratory Function: Yes Nausea/Vomiting: No Temp > 96.8F: Yes Pain Manageable: Yes Adequeate Hydration: Yes Anesthesia Complications: No
[2018-05-09 18:15] VITALS: BP 125/85
== END 2018-05-09 13:00 | disposition home or self-care (01) ==
LOC: OR 06:28
PROVIDERS: ATTEND Surgery
DX: K43.6 Other and unspecified ventral hernia with obstruction, without gangrene (principal); E78.00 Pure hypercholesterolemia, unspecified; J45.909 Unspecified asthma, uncomplicated; Z79.899 Other long term (current) drug therapy; Z98.891 History of uterine scar from previous surgery; Z82.49 Family history of ischemic heart disease and other diseases of the circulatory system
CPT/HCPCS: 36415; 49653; 81025; 85025; 88305; C1781; J0690; J1100; J1170; J2001; J2250; J2405; J2704; J2710; J3010; J7120; 88304